=== PATIENT | female | born 1980 | race Caucasian/White ===

== ENCOUNTER → 2016-12-29 | Outpatient (CLI) | payer MEDICARE, MEDICAID ==
[~2016-12-29] MED LIST: ACET-1600 PO; ALBU1.25 NEB; AMLO10TA2 PO; CARV25TA12 PO; CINA60TA PO; CLON-365 PO; ENOX100S5 SQ; FOLI0.8T3 PO; FURO20TA3 PO; FURO80TA3 PO; LISI-170 PO; LOPE2CAP PO; MECL-76 PO; ONDA8TAB9 PO; ONDANSETRON 2MG/ML, 2ML ONE; SEVE800T8 PO; WARF10TA6 PO; WARF5TAB7 PO; sensipar PO
[2016-12-29 11:53] LABS: ASPARTATE AMINO TRANSFERASE 6 U/L (15-37); BLOOD UREA NITROGEN 46 mg/dL (7-18)
== END | disposition home or self-care (01) ==
LOC: STAR 10:10
PROVIDERS: ATTEND Obstetrics & Gynecology Female Pelvic Medicine and Reconstructive Surgery
DX: Z01.818 Encounter for other preprocedural examination (principal); R79.1 Abnormal coagulation profile
CPT/HCPCS: 36415; 80053; 85025; 85610; 85730; 93005

== ENCOUNTER 2017-01-03 11:08 | Observation (INO) | payer MEDICARE, MEDICAID ==
[~2017-01-03] VITALS: Ht 165.1 cm; Wt 87.3 kg
[~2017-01-03 11:08] MED LIST changes: -ACET-1600 PO; -ALBU1.25 NEB; +CEFAZOLIN 1,000 MG ONE; -CINA60TA PO; +DEXAMETHASONE 4 MG/ML, 1ML ONE; -ENOX100S5 SQ; +GLYCOPYRROLATE 0.2MG/1ML ONE; -LOPE2CAP PO; -MECL-76 PO; +METOPROLOL 1 MG/ML, 5ML ONE; +NEOSTIGMINE 1 MG/ML, 10ML ONE; -ONDA8TAB9 PO; +PROPOFOL 10 MG/ML, 20ML ONE; +ROCURONIUM 10 MG/ML ONE; -WARF10TA6 PO; -WARF5TAB7 PO
[2017-01-03] MEDS ORDERED: LACTATED RINGERS 1,000 ML IV SCH (11:30)
[2017-01-03] MEDS ORDERED: ONDA8TAB9 PO (11:54)
[2017-01-03] MEDS ORDERED: ALBU1.25 NEB (11:54)
[2017-01-03 11:57] VITALS: BP 158/91
[2017-01-03] MEDS ORDERED: NEOMY/POLYMYXIN B GU IRR. 1 ML IRRIG ONE ×2 (12:21→13:42)
[2017-01-03] MEDS ORDERED: MECL-76 PO (12:39)
[2017-01-03] MEDS ORDERED: ENOX100S5 SQ (12:39)
[2017-01-03] MEDS ORDERED: WARF10TA6 PO (12:39)
[2017-01-03] MEDS ORDERED: ACET-1600 PO (12:39)
[2017-01-03] MEDS ORDERED: FOLI0.8T3 PO (12:39)
[2017-01-03] MEDS ORDERED: LOPE2CAP PO (12:39)
[2017-01-03] MEDS ORDERED: WARF5TAB7 PO (12:39)
[2017-01-03] MEDS ORDERED: CINA60TA PO (12:39)
[2017-01-03] MEDS ORDERED: SODIUM CHLORIDE 0.9% 1,000 ML IV SCH (12:43)
[2017-01-03 12:45] LABS: ASPARTATE AMINO TRANSFERASE 17 U/L (15-37); BLOOD UREA NITROGEN 60 mg/dL (7-18)
[2017-01-03 12:50] LABS: HCG UR OBC PASS
[2017-01-03] MEDS ORDERED: BUPIVACAINE/PF-EPI 0.25% 1:200K INFIL ONE ×2 (13:40)
[2017-01-03] MEDS ORDERED: FENTANYL PF 250 MCG/5ML ONE ×3 (13:52→16:19)
[2017-01-03] MEDS ORDERED: MIDAZOLAM 1 MG/ML, 2ML ONE ×2 (13:52→15:54)
[2017-01-03] MEDS ORDERED: OXYcodone 5 MG/5 ML ORAL.SOL UDC PO PRN (14:00)
[2017-01-03] MEDS ORDERED: ALBUTEROL/IPRATROPIUM 2.5MG/0.5MG, 3 ML NPPB PRN (14:00)
[2017-01-03] MEDS ORDERED: ACETAMINOPHEN 325 MG TABLET PO PRN ×2 (14:00→22:00)
[2017-01-03] MEDS ORDERED: hydrALAzine 20 MG/ML, 1ML IV PRN (14:00)
[2017-01-03] MEDS ORDERED: HYDROmorphone 1 MG/ML, 1ML ONE ×2 (14:54→15:28)
[2017-01-03] MEDS ORDERED: METOPROLOL 1 MG/ML, 5ML ONE (14:54)
[2017-01-03] MEDS ORDERED: FENTANYL PF 100 MCG/2ML ONE ×2 (14:54→15:28)
[2017-01-03] MEDS ORDERED: OXYcodone 5 MG/5 ML ORAL.SOL UDC ONE (14:55)
[2017-01-03] MEDS: HYDROmorphone 1 MG/ML, 1ML IV PRN ×4 (14:59→19:35)
[2017-01-03] MEDS: FENTANYL PF 100 MCG/2ML IV PRN ×4 (14:59→17:45)
[2017-01-03] MEDS: METOPROLOL 1 MG/ML, 5ML IV PRN ×2 (15:04→15:24)
[2017-01-03] MEDS ORDERED: ONDANSETRON 2MG/ML, 2ML ONE (15:20)
[2017-01-03] MEDS ORDERED: ACETAMINOPHEN 650 MG/20.3 ML UDC ONE (15:20)
[2017-01-03] MEDS ORDERED: hydrALAzine 20 MG/ML, 1ML ONE (15:29)
[2017-01-03] MEDS ORDERED: morphine SULFATE 10 MG/ML, 1ML ONE (15:52)
[2017-01-03] MEDS ORDERED: morphine SULFATE/PF 0.5 MG/ML, 10ML IV ONE (16:00)
[2017-01-03] MEDS ORDERED: MIDAZOLAM 1 MG/ML, 2ML IVPush ONE (16:00)
[2017-01-03] MEDS ORDERED: morphine SULFATE 10 MG/ML, 1ML IV ONE (16:01)
[2017-01-03] MEDS ORDERED: ONDANSETRON 2MG/ML, 2ML IVPush ONE (16:30)
[2017-01-03] MEDS ORDERED: OXYcodone/APAP 5/325MG TABLET ONE (20:14)
[2017-01-03] MEDS: DOCUSATE 100 MG CAPSULE PO SCH (21:00)
[2017-01-03] MEDS ORDERED: FLURAZEPAM 15 MG CAPSULE PO PRN (21:00)
[2017-01-03] MEDS ORDERED: ZOLPIDEM 5MG TABLET PO PRN (21:00)
[2017-01-03] MEDS ORDERED: ONDANSETRON 2MG/ML, 2ML IV PRN (22:00)
[2017-01-03] MEDS ORDERED: ACETAMINOPHEN 650 MG SUPP PR PRN (22:00)
[2017-01-03] MEDS ORDERED: HYDROmorphone 2 MG/ML, 1ML IV PRN (22:00)
[2017-01-04 00:27] VITALS: BP 139/71
[2017-01-04] MEDS: OXYcodone/APAP 5/325MG TABLET PO PRN ×4 (02:04→15:19)
[2017-01-04] MEDS ORDERED: ONDANSETRON ODT 4 MG ONE (02:18)
[2017-01-04] MEDS ORDERED: ONDANSETRON 4 MG TABLET PO PRN (02:30)
[2017-01-04] MEDS ORDERED: HYDROcodone/APAP 5/325 TABLET PO PRN (03:00)
[2017-01-04 03:52] VITALS: BP 138/66
[2017-01-04] MEDS ORDERED: CARVEDILOL 25 MG TABLET PO SCH (06:00)
[2017-01-04 07:03] VITALS: BP 124/62
[2017-01-04] MEDS: SEVELAMER 800MG TABLET PO SCH ×2 (07:59→10:34)
[2017-01-04] MEDS: IBUPROFEN 600 MG TABLET PO SCH ×2 (07:59→10:34)
[2017-01-04] MEDS: DOCUSATE 100 MG CAPSULE PO SCH (08:05)
[2017-01-04] MEDS ORDERED: AMLODIPINE 5 MG TABLET PO SCH (09:00)
[2017-01-04] MEDS ORDERED: SIMETHICONE 80 MG CHEW TAB PO SCH (09:00)
[2017-01-04] MEDS ORDERED: FUROSEMIDE 40 MG TABLET PO SCH (09:00)
[2017-01-04] MEDS ORDERED: LISINOPRIL 10 MG TABLET PO SCH (09:00)
[2017-01-04 13:05] VITALS: BP 108/49
[2017-01-04] MEDS ORDERED: FUROSEMIDE 80 MG TABLET PO SCH (21:00)
== END 2017-01-04 15:52 | disposition home or self-care (01) ==
LOC: OUT 11:08 → 4NOR 20:08 → OUT 20:25 → INTOOBSV 20:27 → 4NOR 20:27
PROVIDERS: ADMIT Obstetrics & Gynecology Female Pelvic Medicine and Reconstructive Surgery; ATTEND Obstetrics & Gynecology Female Pelvic Medicine and Reconstructive Surgery
DX: N99.820 Postprocedural hemorrhage of a genitourinary system organ or structure following a genitourinary system procedure (principal); N92.1 Excessive and frequent menstruation with irregular cycle; N94.6 Dysmenorrhea, unspecified; K21.9 Gastro-esophageal reflux disease without esophagitis; J45.909 Unspecified asthma, uncomplicated; I25.10 Atherosclerotic heart disease of native coronary artery without angina pectoris; I10 Essential (primary) hypertension; N39.3 Stress incontinence (female) (male); F17.210 Nicotine dependence, cigarettes, uncomplicated
CPT/HCPCS: 36415; 57200; 80053; 81025; 85025; 85610; 88307; 96374; C1771; G0378; J0360; J0690; J1100; J1170; J2250; J2274; J2405; J2704; J2710; J3010; Q0162; J3490

== ENCOUNTER 2017-01-10 09:28 | Inpatient (IN) | payer MEDICARE, MEDICAID ==
[~2017-01-10] VITALS: Ht 165.1 cm; Wt 85.5 kg
[2017-01-10] VITALS (10 sets, daily range): BP systolic 109–152; BP diastolic 59–85
[~2017-01-10 09:28] MED LIST changes: +ACET-1600 PO; +ALBU1.25 NEB; -CEFAZOLIN 1,000 MG ONE; +CINA60TA PO; -DEXAMETHASONE 4 MG/ML, 1ML ONE; +ENOX100S5 SQ; -GLYCOPYRROLATE 0.2MG/1ML ONE; +LOPE2CAP PO; +MECL-76 PO; -METOPROLOL 1 MG/ML, 5ML ONE; -NEOSTIGMINE 1 MG/ML, 10ML ONE; +ONDA8TAB9 PO; -ONDANSETRON 2MG/ML, 2ML ONE; -PROPOFOL 10 MG/ML, 20ML ONE; -ROCURONIUM 10 MG/ML ONE; +WARF10TA6 PO; +WARF5TAB7 PO
[2017-01-10] MEDS ORDERED: ONDANSETRON 2MG/ML, 2ML IVPush ONE (11:00)
[2017-01-10] MEDS ORDERED: SODIUM CHLORIDE 0.9% 1,000ML IVBOLUS ONE (11:00)
[2017-01-10] MEDS ORDERED: SODIUM CHLORIDE FLUSH 10ML SYR IVF ONE (11:00)
[2017-01-10 11:39] LABS: BLOOD UREA NITROGEN 84 mg/dL (7-18)
[2017-01-10 11:46] LABS: ANISOCYTOSIS 1+; HYPOCHROMIA 1+; POLYCHROMASIA 1+
[2017-01-10] MEDS ORDERED: OMNIPAQUE 350 MG/ML, 100ML BOTTLE ONE (12:40)
[2017-01-10] MEDS ORDERED: MORPHINE SULFATE 4 MG/ML, 1ML ONE (13:18)
[2017-01-10] MEDS ORDERED: ONDANSETRON 2MG/ML, 2ML ONE (13:18)
[2017-01-10] MEDS ORDERED: HYDROmorphone 1 MG/ML, 1ML ONE ×2 (13:19→14:25)
[2017-01-10] MEDS: HYDROmorphone 1 MG/ML, 1ML IVPush PRN ×2 (13:23→14:26)
[2017-01-10] MEDS ORDERED: METRONIDAZOLE PMX 500MG/100ML 100 ML IV ONE (13:30)
[2017-01-10] MEDS ORDERED: CEFTRIAXONE PMX 1GM/50ML 50 ML IV ONE (13:30)
[2017-01-10] MEDS ORDERED: ACETAMINOPHEN 500 MG TABLET PO PRN (14:00)
[2017-01-10] MEDS ORDERED: ALBUTEROL SULFATE 2.5 MG/3 ML NEB PRN (14:00)
[2017-01-10] MEDS ORDERED: CEFTRIAXONE PMX 1GM/50ML 50 ML ONE (14:02)
[2017-01-10] MEDS ORDERED: METRONIDAZOLE PMX 500MG/100ML 100 ML ONE (14:03)
[2017-01-10] MEDS ORDERED: LORazepam 0.5MG TABLET PO PRN (14:30)
[2017-01-10] MEDS ORDERED: ONDANSETRON 2MG/ML, 2ML IVPush PRN (14:30)
[2017-01-10] MEDS ORDERED: CEFTRIAXONE 1,000 MG in SODIUM CHLORIDE 0.9% 50 ML IV SCH (14:30)
[2017-01-10] MEDS ORDERED: morphine SULFATE 10 MG/ML, 1ML IVPush PRN (14:30)
[2017-01-10] MEDS: CEFTRIAXONE PMX 1GM/50ML 50 ML IV SCH (15:02)
[2017-01-10] MEDS: SEVELAMER 800MG TABLET PO SCH (17:26)
[2017-01-10] MEDS: METRONIDAZOLE PMX 500MG/100ML 100 ML IV SCH (21:22)
[2017-01-10] MEDS: FAMOTIDINE 20 MG TABLET PO SCH (23:13)
[2017-01-10] MEDS: FUROSEMIDE 80 MG TABLET PO SCH (23:13)
[2017-01-10] MEDS: CARVEDILOL 25 MG TABLET PO SCH (23:14)
[2017-01-10] MEDS: LISINOPRIL 20 MG TABLET PO SCH (23:14)
[2017-01-10] MEDS: CINACALCET 30 MG TABLET PO SCH (23:17)
[2017-01-11] VITALS (11 sets, daily range): BP systolic 103–150; BP diastolic 56–81
[2017-01-11] MEDS: CEFTRIAXONE PMX 1GM/50ML 50 ML IV SCH ×2 (02:35→15:14)
[2017-01-11 05:15] LABS: BLOOD UREA NITROGEN 36 mg/dL (7-18)
[2017-01-11] MEDS: METRONIDAZOLE PMX 500MG/100ML 100 ML IV SCH ×3 (05:53→20:58)
[2017-01-11 08:37] LABS: HEP B SURF. AB 29.8 mIU/mL (0.0-10.0)
[2017-01-11] MEDS: FOLIC ACID PO SCH ×2 (09:00)
[2017-01-11] MEDS: [UNRECOGNIZED DRUG - OTHER] PO SCH ×2 (09:00)
[2017-01-11] MEDS: VITAMIN B COMP W C PO SCH ×2 (09:00)
[2017-01-11] MEDS: FUROSEMIDE 40 MG TABLET PO SCH (09:12)
[2017-01-11] MEDS: LISINOPRIL 20 MG TABLET PO SCH ×2 (09:12→20:15)
[2017-01-11] MEDS: CARVEDILOL 25 MG TABLET PO SCH ×2 (09:12→20:15)
[2017-01-11] MEDS: AMLODIPINE 5 MG TABLET PO SCH (09:12)
[2017-01-11] MEDS: SEVELAMER 800MG TABLET PO SCH ×3 (09:12→17:33)
[2017-01-11] MEDS: CINACALCET 30 MG TABLET PO SCH ×2 (09:12→20:15)
[2017-01-11] MEDS ORDERED: DOCUSATE 100 MG CAPSULE PO PRN (15:00)
[2017-01-11] MEDS: FAMOTIDINE 20 MG TABLET PO SCH (20:15)
[2017-01-11] MEDS: FUROSEMIDE 80 MG TABLET PO SCH (20:16)
[2017-01-12 00:42] VITALS: BP 124/69
[2017-01-12 01:58] VITALS: BP 147/75
[2017-01-12] MEDS: CEFTRIAXONE PMX 1GM/50ML 50 ML IV SCH ×2 (02:39→14:59)
[2017-01-12 05:23] LABS: BLOOD UREA NITROGEN 26 mg/dL (7-18)
[2017-01-12] MEDS: METRONIDAZOLE PMX 500MG/100ML 100 ML IV SCH ×2 (05:49→13:14)
[2017-01-12 08:00] VITALS: BP 131/77
[2017-01-12] MEDS: [UNRECOGNIZED DRUG - OTHER] PO SCH ×2 (09:00)
[2017-01-12] MEDS ORDERED: LACTULOSE 20 GM/30 ML UDC PO SCH (09:00)
[2017-01-12] MEDS: FOLIC ACID PO SCH ×2 (09:00)
[2017-01-12] MEDS: VITAMIN B COMP W C PO SCH ×2 (09:00)
[2017-01-12] MEDS: LISINOPRIL 20 MG TABLET PO SCH (09:10)
[2017-01-12] MEDS: AMLODIPINE 5 MG TABLET PO SCH (09:10)
[2017-01-12] MEDS: CINACALCET 30 MG TABLET PO SCH (09:10)
[2017-01-12] MEDS: FUROSEMIDE 40 MG TABLET PO SCH (09:10)
[2017-01-12] MEDS: SEVELAMER 800MG TABLET PO SCH ×2 (09:10→13:15)
[2017-01-12] MEDS: CARVEDILOL 25 MG TABLET PO SCH (09:11)
[2017-01-12] MEDS ORDERED: LACTULOSE 10 GM/15 ML UDC PO ONE (11:00)
[2017-01-12 14:00] VITALS: BP 118/76
[2017-01-12] MEDS ORDERED: BISACODYL 10 MG SUPP PR PRN (14:00)
[2017-01-12] MEDS ORDERED: CEFU500T50 PO (16:52)
== END 2017-01-12 17:55 | disposition home or self-care (01) | DRG 919 ==
LOC: ED 11:36 → EDIP 13:41 → 4WST 14:58
PROVIDERS: ADMIT Internal Medicine; ATTEND Internal Medicine
PROC: 0T9B70Z Drainage of Bladder with Drainage Device, Via Natural or Artificial Opening (ICD-10-PCS; principal; 2017-01-10)
PROC: 30233N1 Transfusion of Nonautologous Red Blood Cells into Peripheral Vein, Percutaneous Approach (ICD-10-PCS; 2017-01-10)
PROC: 30233L1 Transfusion of Nonautologous Fresh Plasma into Peripheral Vein, Percutaneous Approach (ICD-10-PCS; 2017-01-10)
PROC: 30233K1 Transfusion of Nonautologous Frozen Plasma into Peripheral Vein, Percutaneous Approach (ICD-10-PCS; 2017-01-10)
PROC: 30233L1 Transfusion of Nonautologous Fresh Plasma into Peripheral Vein, Percutaneous Approach (ICD-10-PCS; 2017-01-11)
DX: N99.820 Postprocedural hemorrhage of a genitourinary system organ or structure following a genitourinary system procedure (principal); E43 Unspecified severe protein-calorie malnutrition; N18.6 End stage renal disease; D62 Acute posthemorrhagic anemia; N39.0 Urinary tract infection, site not specified; I12.0 Hypertensive chronic kidney disease with stage 5 chronic kidney disease or end stage renal disease; Z68.31 Body mass index [BMI] 31.0-31.9, adult; F17.210 Nicotine dependence, cigarettes, uncomplicated; K59.00 Constipation, unspecified; Z83.3 Family history of diabetes mellitus; Z86.711 Personal history of pulmonary embolism; Z86.718 Personal history of other venous thrombosis and embolism; Z90.710 Acquired absence of both cervix and uterus; Z99.2 Dependence on renal dialysis; Z88.8 Allergy status to other drugs, medicaments and biological substances; T45.515A Adverse effect of anticoagulants, initial encounter
CPT/HCPCS: 36415; 36430; 74177; 76856; 80048; 81001; 82040; 85014; 85018; 85025; 85610; 86704; 86706; 86850; 86900; 86923; 87086; 87340; 96361; 96365; 96375; 96376; J0696; J1170; J2405; Q9967; J2270; J7030; P9016; P9017

== ENCOUNTER 2017-01-25 15:14 | Inpatient (IN) | payer MEDICARE, MEDICAID ==
[2017-01-25] VITALS (11 sets, daily range): BP systolic 100–131; BP diastolic 50–60
[~2017-01-25] VITALS: Ht 165.1 cm; Wt 83.2 kg
[~2017-01-25 15:14] MED LIST changes: +CEFU500T50 PO
[2017-01-25] MEDS ORDERED: SODIUM CHLORIDE FLUSH 10ML SYR IVF ONE (15:30)
[2017-01-25] MEDS ORDERED: SODIUM CHLORIDE 0.9% 1,000ML IVBOLUS ONE (15:30)
[2017-01-25 15:54] LABS: BLOOD UREA NITROGEN 44 mg/dL (7-18)
[2017-01-25 15:57] LABS: ASPARTATE AMINO TRANSFERASE 7 U/L (15-37)
[2017-01-25 16:09] LABS: ANISOCYTOSIS 1+; MICROCYTOSIS 1+
[2017-01-25] MEDS ORDERED: PHYTONADIONE 5 MG TABLET PO ONE (16:30)
[2017-01-25] MEDS ORDERED: ONDANSETRON ODT 4 MG PO PRN (17:30)
[2017-01-25] MEDS ORDERED: ALBUTEROL SULFATE 2.5 MG/3 ML NEB PRN (17:30)
[2017-01-25] MEDS: SEVELAMER 800MG TABLET PO SCH (17:30)
[2017-01-25] MEDS: NICOTINE 14MG/24 HR PATCH.TD24 TD SCH (17:30)
[2017-01-25] MEDS ORDERED: ONDANSETRON 2MG/ML, 2ML IVPush PRN (17:30)
[2017-01-25] MEDS ORDERED: ACETAMINOPHEN 325 MG TABLET PO PRN (17:30)
[2017-01-25] MEDS: FUROSEMIDE 80 MG TABLET PO SCH (21:00)
[2017-01-25] MEDS: LISINOPRIL 20 MG TABLET PO SCH (21:00)
[2017-01-25] MEDS: CARVEDILOL 25 MG TABLET PO SCH (21:00)
[2017-01-25] MEDS: CINACALCET 30 MG TABLET PO SCH (23:47)
[2017-01-26] VITALS (15 sets, daily range): BP systolic 103–124; BP diastolic 62–76
[2017-01-26 07:59] LABS: ASPARTATE AMINO TRANSFERASE 11 U/L (15-37); BLOOD UREA NITROGEN 23 mg/dL (7-18)
[2017-01-26] MEDS: CINACALCET 30 MG TABLET PO SCH ×2 (08:41→20:28)
[2017-01-26] MEDS: SEVELAMER 800MG TABLET PO SCH ×3 (08:41→17:34)
[2017-01-26] MEDS: LISINOPRIL 20 MG TABLET PO SCH ×2 (08:42→20:28)
[2017-01-26] MEDS: FUROSEMIDE 40 MG TABLET PO SCH (08:42)
[2017-01-26] MEDS: CARVEDILOL 25 MG TABLET PO SCH ×2 (08:42→20:29)
[2017-01-26] MEDS ORDERED: ALBU8.5H3 PO (08:59)
[2017-01-26] MEDS ORDERED: AMLODIPINE 5 MG TABLET PO SCH (09:00)
[2017-01-26] MEDS ORDERED: PROAIR PO PRN (09:30)
[2017-01-26] MEDS: NICOTINE 14MG/24 HR PATCH.TD24 TD SCH (17:30)
[2017-01-26] MEDS ORDERED: WARFARIN 2 MG TABLET PO-COUM ONE (18:00)
[2017-01-26] MEDS: CALCIUM CARBONATE 500 MG TAB.CHEW PO PRN (20:28)
[2017-01-26] MEDS: FUROSEMIDE 80 MG TABLET PO SCH (20:28)
[2017-01-27] VITALS (7 sets, daily range): BP systolic 103–145; BP diastolic 51–83
[2017-01-27 06:45] LABS: ASPARTATE AMINO TRANSFERASE 11 U/L (15-37); BLOOD UREA NITROGEN 34 mg/dL (7-18); TOTAL IRON BINDING CAPACITY 187 mcg/dL (250-450)
[2017-01-27] MEDS: SEVELAMER 800MG TABLET PO SCH ×3 (08:23→17:00)
[2017-01-27] MEDS: CINACALCET 30 MG TABLET PO SCH ×2 (08:23→19:57)
[2017-01-27] MEDS: LISINOPRIL 20 MG TABLET PO SCH ×2 (09:00→19:57)
[2017-01-27] MEDS: FUROSEMIDE 40 MG TABLET PO SCH (09:00)
[2017-01-27] MEDS: CARVEDILOL 25 MG TABLET PO SCH ×2 (09:00→19:58)
[2017-01-27] MEDS: POLYETHYLENE GLYCOL 17 GM PACKET PO SCH (13:30)
[2017-01-27] MEDS: NICOTINE 14MG/24 HR PATCH.TD24 TD SCH (17:30)
[2017-01-27] MEDS ORDERED: WARFARIN 2.5 MG TABLET PO-COUM SCH (18:00)
[2017-01-27] MEDS: CALCIUM CARBONATE 500 MG TAB.CHEW PO PRN (19:57)
[2017-01-27] MEDS: FUROSEMIDE 80 MG TABLET PO SCH (19:57)
[2017-01-28 01:20] VITALS: BP 105/67
[2017-01-28 05:05] LABS: BLOOD UREA NITROGEN 24 mg/dL (7-18)
[2017-01-28 08:00] VITALS: BP 123/77
[2017-01-28] MEDS: CINACALCET 30 MG TABLET PO SCH ×2 (08:40→20:39)
[2017-01-28] MEDS: LISINOPRIL 20 MG TABLET PO SCH ×2 (08:40→20:40)
[2017-01-28] MEDS: CARVEDILOL 25 MG TABLET PO SCH ×2 (08:41→20:39)
[2017-01-28] MEDS: SEVELAMER 800MG TABLET PO SCH ×3 (08:41→17:16)
[2017-01-28] MEDS: FUROSEMIDE 40 MG TABLET PO SCH (08:41)
[2017-01-28] MEDS: POLYETHYLENE GLYCOL 17 GM PACKET PO SCH (08:41)
[2017-01-28 10:32] LABS: PTH INTACT INTERPRETATION ** Comment **
[2017-01-28 11:00] LABS: PARATHYROID HORMONE INTACT 183.4 pg/mL (14-72)
[2017-01-28] MEDS ORDERED: POLYETHYLENE GLYCOL 17 GM PACKET PO PRN (11:30)
[2017-01-28 15:04] VITALS: BP 147/85
[2017-01-28] MEDS: NICOTINE 14MG/24 HR PATCH.TD24 TD SCH (17:17)
[2017-01-28] MEDS ORDERED: WARFARIN 3 MG TABLET PO-COUM ONE (18:00)
[2017-01-28] MEDS: CALCIUM CARBONATE 500 MG TAB.CHEW PO PRN (18:13)
[2017-01-28 20:00] VITALS: BP 138/80
[2017-01-28] MEDS: FUROSEMIDE 80 MG TABLET PO SCH (20:40)
[2017-01-28] MEDS ORDERED: AMLODIPINE 5 MG TABLET PO SCH (21:00)
[2017-01-29 02:00] VITALS: BP 128/80
[2017-01-29 05:20] LABS: BLOOD UREA NITROGEN 43 mg/dL (7-18)
[2017-01-29 06:43] VITALS: BP 113/56
[2017-01-29] MEDS: LISINOPRIL 20 MG TABLET PO SCH (08:14)
[2017-01-29] MEDS: FUROSEMIDE 40 MG TABLET PO SCH (08:14)
[2017-01-29] MEDS: CINACALCET 30 MG TABLET PO SCH (08:14)
[2017-01-29] MEDS: CARVEDILOL 25 MG TABLET PO SCH (08:15)
[2017-01-29] MEDS: SEVELAMER 800MG TABLET PO SCH ×2 (08:15→12:00)
[2017-01-29] MEDS ORDERED: WARF3TAB PO (13:12)
[2017-01-29] MEDS ORDERED: AMLO5TAB2 PO (13:12)
[2017-01-29] MEDS ORDERED: CINA30TA PO (13:12)
[2017-01-29] MEDS ORDERED: WARFARIN 3 MG TABLET PO-COUM ONE (15:00)
== END 2017-01-29 14:45 | disposition home or self-care (01) | DRG 919 ==
LOC: ED 15:25 → EDIP 16:05 → 4WST 17:06
PROVIDERS: ADMIT Internal Medicine; ATTEND Internal Medicine
PROC: 0UCGXZZ Extirpation of Matter from Vagina, External Approach (ICD-10-PCS; principal; 2017-01-25)
PROC: 30233L1 Transfusion of Nonautologous Fresh Plasma into Peripheral Vein, Percutaneous Approach (ICD-10-PCS; 2017-01-25)
PROC: 30233N1 Transfusion of Nonautologous Red Blood Cells into Peripheral Vein, Percutaneous Approach (ICD-10-PCS; 2017-01-25)
PROC: 30233K1 Transfusion of Nonautologous Frozen Plasma into Peripheral Vein, Percutaneous Approach (ICD-10-PCS; 2017-01-25)
PROC: 5A1D60Z (ICD-10-PCS; 2017-01-25)
PROC: 30233N1 Transfusion of Nonautologous Red Blood Cells into Peripheral Vein, Percutaneous Approach (ICD-10-PCS; 2017-01-26)
PROC: 30233L1 Transfusion of Nonautologous Fresh Plasma into Peripheral Vein, Percutaneous Approach (ICD-10-PCS; 2017-01-26)
PROC: 30233K1 Transfusion of Nonautologous Frozen Plasma into Peripheral Vein, Percutaneous Approach (ICD-10-PCS; 2017-01-26)
PROC: 30233N1 Transfusion of Nonautologous Red Blood Cells into Peripheral Vein, Percutaneous Approach (ICD-10-PCS; 2017-01-27)
DX: N99.820 Postprocedural hemorrhage of a genitourinary system organ or structure following a genitourinary system procedure (principal); N18.6 End stage renal disease; E43 Unspecified severe protein-calorie malnutrition; D62 Acute posthemorrhagic anemia; D68.59 Other primary thrombophilia; E72.12 Methylenetetrahydrofolate reductase deficiency; I13.11 Hypertensive heart and chronic kidney disease without heart failure, with stage 5 chronic kidney disease, or end stage renal disease; N92.1 Excessive and frequent menstruation with irregular cycle; N94.6 Dysmenorrhea, unspecified; F17.210 Nicotine dependence, cigarettes, uncomplicated; D63.1 Anemia in chronic kidney disease; E87.5 Hyperkalemia; D72.829 Elevated white blood cell count, unspecified; G43.909 Migraine, unspecified, not intractable, without status migrainosus; J45.909 Unspecified asthma, uncomplicated; K21.9 Gastro-esophageal reflux disease without esophagitis; Z79.01 Long term (current) use of anticoagulants; Z82.49 Family history of ischemic heart disease and other diseases of the circulatory system; Z86.711 Personal history of pulmonary embolism; Z86.718 Personal history of other venous thrombosis and embolism; Z90.710 Acquired absence of both cervix and uterus; Z79.899 Other long term (current) drug therapy; Z99.2 Dependence on renal dialysis; Z88.8 Allergy status to other drugs, medicaments and biological substances; Z82.5 Family history of asthma and other chronic lower respiratory diseases; Z68.30 Body mass index [BMI] 30.0-30.9, adult; N93.8 Other specified abnormal uterine and vaginal bleeding; T45.515A Adverse effect of anticoagulants, initial encounter
CPT/HCPCS: 36415; 36430; 76856; 80053; 80069; 82306; 82310; 82728; 83540; 83550; 83735; 83970; 84100; 85014; 85018; 85025; 85610; 85730; 86850; 86900; 86923; 93005; P9016; P9017

== ENCOUNTER 2017-03-04 13:25 | Emergency (ER) | payer MEDICARE, MEDICAID ==
[2017-03-04] VITALS (7 sets, daily range): BP systolic 157–175; BP diastolic 68–90
[~2017-03-04] VITALS: Ht 165.1 cm; Wt 95.7 kg
[~2017-03-04 13:25] MED LIST changes: +ALBU8.5H3 PO; +AMLO5TAB2 PO; +CINA30TA PO; +WARF3TAB PO
[2017-03-04] MEDS ORDERED: SODIUM CHLORIDE FLUSH 10ML SYR IVF ONE (14:00)
[2017-03-04 14:30] LABS: BLOOD UREA NITROGEN 16 mg/dL (7-18)
[2017-03-04 14:55] LABS: HEMOGLOBIN 7.1 g/dL (11.7-16.4); WHITE BLOOD COUNT 7.2 x10^3/uL (3.4-10)
[2017-03-04 14:59] LABS: HEMATOCRIT 21.1 % (34.6-47.8)
[2017-03-06] MEDS ORDERED: WARF5TAB PO (20:22)
== END 2017-03-04 20:28 | disposition home or self-care (01) ==
LOC: ED 15:04
DX: D59.9 Acquired hemolytic anemia, unspecified (principal); I10 Essential (primary) hypertension; J45.909 Unspecified asthma, uncomplicated; Z90.710 Acquired absence of both cervix and uterus; F17.200 Nicotine dependence, unspecified, uncomplicated; Z99.2 Dependence on renal dialysis
CPT/HCPCS: 36415; 36430; 80048; 82040; 85025; 85610; 85730; 86850; 86900; 86923; 93005; 99285; P9016

== ENCOUNTER 2017-04-29 06:44 | Inpatient (IN) | payer MEDICARE, MEDICAID ==
[~2017-04-29] VITALS: Ht 167.6 cm; Wt 80.3 kg
[~2017-04-29 06:44] MED LIST changes: -ALBU8.5H3 PO; +ALBU8.5H8 PO; -CINA30TA PO; +CINA30TA2 PO; +ETOMIDATE 20 MG/10 ML ONE; +PROPOFOL 10 MG/ML, 100ML IV ONE; +PROPOFOL 10 MG/ML, 20ML ONE; +SUCCINYLCHOLINE 20 MG/ML, 10ML ONE; +WARF5TAB PO
[2017-04-29] MEDS ORDERED: NITROGLYCERIN/D5W PMX 250 ML IV SCH (06:57)
[2017-04-29] MEDS ORDERED: SODIUM CHLORIDE FLUSH 10ML SYR IVF ONE (07:00)
[2017-04-29] MEDS ORDERED: NITROGLYCERIN/D5W PMX 250 ML IV PRN (07:00)
[2017-04-29] MEDS ORDERED: PLEASE ENTER HEIGHT AND WEIGHT MC SCH (07:00)
[2017-04-29 07:26] LABS: HEMATOCRIT 27.6 % (34.6-47.8); HEMOGLOBIN 9.1 g/dL (11.7-16.4); WHITE BLOOD COUNT 15.3 x10^3/uL (3.4-10)
[2017-04-29] MEDS ORDERED: NITROGLYCERIN 0.4 MG/SPRAY SL PRN (07:30)
[2017-04-29] MEDS ORDERED: methylPREDNISolone SOD SUCC 125 MG/2 ML ONE (07:32)
[2017-04-29] MEDS ORDERED: ALBUTEROL/IPRATROPIUM 2.5MG/0.5MG, 3 ML ONE (07:33)
[2017-04-29 07:39] LABS: BLOOD UREA NITROGEN 93 mg/dL (7-18)
[2017-04-29 07:47] LABS: IS PT STATUS REG ER OR PRE ER? YES
[2017-04-29 07:59] LABS: ABG COLLECTION SITE LEFT RADIAL; COLLATERAL CIRCULATION TESTING NORMAL
[2017-04-29] MEDS ORDERED: INSULIN REGULAR 100 UNITS/ML, 3ML VIAL IVPush ONE (08:00)
[2017-04-29] MEDS ORDERED: ALBUTEROL/IPRATROPIUM 2.5MG/0.5MG, 3 ML NEB ONE (08:00)
[2017-04-29] MEDS ORDERED: CALCIUM CHLORIDE 10%, 10ML SYR IVPush ONE (08:00)
[2017-04-29] MEDS ORDERED: DEXTROSE 50%, 50ML SYRINGE IVPush ONE (08:00)
[2017-04-29] MEDS ORDERED: SODIUM POLY SULFONATE UDC 15 GM/60 ML NG ONE (08:00)
[2017-04-29] MEDS ORDERED: SODIUM BICARB 8.4%, 50ML SYRINGE IVPush ONE (08:00)
[2017-04-29] MEDS ORDERED: ALBUTEROL 0.5%, 20ML NPPB ONE (08:00)
[2017-04-29] MEDS ORDERED: DEXTROSE 50%, 50ML SYRINGE ONE (08:11)
[2017-04-29] MEDS ORDERED: SODIUM BICARB 8.4%, 50ML SYRINGE ONE (08:11)
[2017-04-29] MEDS ORDERED: CALCIUM CHLORIDE 10%, 10ML SYR ONE (08:11)
[2017-04-29] MEDS ORDERED: SODIUM POLYSTYRENE SULFONATE ORAL SUSP ONE (08:11)
[2017-04-29] MEDS ORDERED: INSULIN REGULAR 100 UNITS/ML, 3ML VIAL ONE (08:12)
[2017-04-29 08:35] LABS: ABG COLLECTION SITE RIGHT BRACHIAL; FIO2 60 %
[2017-04-29] MEDS ORDERED: PROPOFOL 100 ML IV PRN ×2 (08:35→10:47)
[2017-04-29] MEDS ORDERED: ALBUTEROL/IPRATROPIUM 2.5MG/0.5MG, 3 ML INLINE SCH (11:00)
[2017-04-29] MEDS ORDERED: LIDOCAINE-MPF 1%, 2ML ENDO PRN (11:00)
[2017-04-29] MEDS ORDERED: SENNOSIDES 8.8 MG/5 ML ORAL SOL NG PRN (11:00)
[2017-04-29] MEDS ORDERED: LACTULOSE 20 GM/30 ML UDC NG PRN (11:00)
[2017-04-29] MEDS ORDERED: SENNA/DOCUSATE TABLET NG PRN (11:00)
[2017-04-29] MEDS ORDERED: PANTOPRAZOLE 40 MG IV IV SCH (11:00)
[2017-04-29] MEDS ORDERED: PHARMACY MAY ADJ FOR RENAL FX MC SCH (11:00)
[2017-04-29] MEDS ORDERED: BISACODYL 10 MG SUPP PR PRN (11:00)
[2017-04-29] MEDS ORDERED: AMIODARONE 50 MG/ML, 3ML ONE (11:17)
[2017-04-29] MEDS: SEVELAMER 800MG TABLET PO SCH ×2 (12:00→16:34)
[2017-04-29] MEDS: ALBUTEROL/IPRATROPIUM 2.5MG/0.5MG, 3 ML NPPB SCH ×2 (17:40→21:40)
[2017-04-29] MEDS ORDERED: LORazepam 2 MG/ML, 1ML ONE (19:16)
[2017-04-29] MEDS ORDERED: DILTIAZEM 125 MG in SODIUM CHLORIDE 0.9% 100 ML IV PRN (19:30)
[2017-04-29] MEDS ORDERED: DILTIAZEM 5 MG/ML, 5ML IVPush ONE ×2 (19:30)
[2017-04-29 19:55] LABS: IS PT STATUS REG ER OR PRE ER? NO
[2017-04-29 20:07] LABS: BLOOD UREA NITROGEN 32 mg/dL (7-18)
[2017-04-29] MEDS: CARVEDILOL 25 MG TABLET PO SCH (21:00)
[2017-04-29] MEDS: AMLODIPINE 5 MG TABLET PO SCH (21:00)
[2017-04-29] MEDS: CINACALCET 30 MG TABLET PO SCH (21:01)
[2017-04-29] MEDS: LISINOPRIL 20 MG TABLET PO SCH (21:01)
[2017-04-30] MEDS: FENTANYL PF 100 MCG/2ML IVPush PRN ×2 (02:07→05:18)
[2017-04-30 04:41] LABS: ABG COLLECTION SITE LEFT BRACHIAL
[2017-04-30 04:44] LABS: HEMATOCRIT 23.3 % (34.6-47.8); WHITE BLOOD COUNT 9.4 x10^3/uL (3.4-10)
[2017-04-30 04:51] LABS: BLOOD UREA NITROGEN 43 mg/dL (7-18)
[2017-04-30 04:56] LABS: ASPARTATE AMINO TRANSFERASE 43 U/L (15-37); TOTAL IRON BINDING CAPACITY 195 mcg/dL (250-450)
[2017-04-30] MEDS: ALBUTEROL/IPRATROPIUM 2.5MG/0.5MG, 3 ML NPPB SCH ×2 (06:42→10:00)
[2017-04-30] MEDS: SEVELAMER 800MG TABLET PO SCH ×4 (07:27→18:03)
[2017-04-30] MEDS: LISINOPRIL 20 MG TABLET PO SCH ×2 (09:00→21:55)
[2017-04-30] MEDS: CARVEDILOL 25 MG TABLET PO SCH ×2 (09:00→21:55)
[2017-04-30] MEDS: CINACALCET 30 MG TABLET PO SCH ×2 (09:00→21:55)
[2017-04-30] MEDS: OXYcodone IR 5MG TABLET PO PRN ×3 (09:57→21:56)
[2017-04-30] MEDS ORDERED: ONDANSETRON 2MG/ML, 2ML IVPush PRN (11:30)
[2017-04-30 13:33] VITALS: BP 118/69
[2017-04-30 14:43] VITALS: BP 130/60
[2017-04-30] MEDS ORDERED: WARFARIN 1 MG TABLET PO-COUM SCH (18:00)
[2017-04-30] MEDS: AMLODIPINE 5 MG TABLET PO SCH (21:00)
[2017-04-30 21:53] VITALS: BP 113/72
[2017-05-01] VITALS (11 sets, daily range): BP systolic 76–129; BP diastolic 46–78
[2017-05-01 05:47] LABS: HEMATOCRIT 25.6 % (34.6-47.8); HEMOGLOBIN 8.7 g/dL (11.7-16.4); WHITE BLOOD COUNT 8.9 x10^3/uL (3.4-10)
[2017-05-01 05:53] LABS: BLOOD UREA NITROGEN 36 mg/dL (7-18)
[2017-05-01] MEDS: SEVELAMER 800MG TABLET PO SCH ×3 (09:14→17:31)
[2017-05-01] MEDS: LISINOPRIL 20 MG TABLET PO SCH (09:14)
[2017-05-01] MEDS: CARVEDILOL 25 MG TABLET PO SCH (09:15)
[2017-05-01] MEDS: CINACALCET 30 MG TABLET PO SCH ×2 (09:15→22:22)
[2017-05-01] MEDS: OXYcodone IR 5MG TABLET PO PRN ×2 (09:32→10:40)
[2017-05-01] MEDS ORDERED: ALBUTEROL/IPRATROPIUM 2.5MG/0.5MG, 3 ML NPPB PRN (10:00)
[2017-05-01] MEDS: ACETAMINOPHEN 325 MG TABLET PO PRN (12:37)
[2017-05-01 12:41] LABS: IS PT STATUS REG ER OR PRE ER? NO
[2017-05-01] MEDS ORDERED: MOME220A9 INH (17:35)
[2017-05-01] MEDS ORDERED: MONT10TA9 PO (17:36)
[2017-05-01] MEDS ORDERED: CINA60TA PO (17:38)
[2017-05-01] MEDS ORDERED: AMLO10TA2 PO (17:42)
[2017-05-01] MEDS ORDERED: CLON-365 PO (17:42)
[2017-05-01] MEDS ORDERED: FOLI0.8T35 PO (17:42)
[2017-05-01] MEDS ORDERED: LOSA25TA5 PO (17:42)
[2017-05-01] MEDS ORDERED: WARFARIN 3 MG TABLET PO-COUM SCH (18:00)
[2017-05-01] MEDS: MOMETASONE INH SCH (21:00)
[2017-05-01] MEDS: MONTELUKAST 10 MG TABLET PO SCH (22:22)
[2017-05-02] VITALS (8 sets, daily range): BP systolic 87–151; BP diastolic 53–82
[2017-05-02] MEDS: OXYcodone IR 5MG TABLET PO PRN (04:01)
[2017-05-02 05:16] LABS: HEMOGLOBIN 8.5 g/dL (11.7-16.4); WHITE BLOOD COUNT 7.2 x10^3/uL (3.4-10)
[2017-05-02 05:27] LABS: BLOOD UREA NITROGEN 56 mg/dL (7-18)
[2017-05-02 07:04] LABS: IS PT STATUS REG ER OR PRE ER? NO
[2017-05-02] MEDS: AMLODIPINE 5 MG TABLET PO SCH (09:00)
[2017-05-02] MEDS: LOSARTAN 25MG TABLET PO SCH (09:00)
[2017-05-02] MEDS: SEVELAMER 800MG TABLET PO SCH ×3 (12:00→17:31)
[2017-05-02] MEDS: ACETAMINOPHEN 325 MG TABLET PO PRN (12:42)
[2017-05-02] MEDS: CINACALCET 30 MG TABLET PO SCH ×2 (12:43→21:31)
[2017-05-02] MEDS: SODIUM CHLORIDE 0.9% 1,000 ML IV SCH (17:32)
[2017-05-02] MEDS ORDERED: WARFARIN 5 MG TABLET PO-COUM ONE (18:00)
[2017-05-02] MEDS: MOMETASONE INH SCH (21:00)
[2017-05-02] MEDS: MONTELUKAST 10 MG TABLET PO SCH (21:32)
[2017-05-03 01:40] VITALS: BP 105/69
[2017-05-03 05:31] LABS: HEMOGLOBIN 8.8 g/dL (11.7-16.4); WHITE BLOOD COUNT 7.2 x10^3/uL (3.4-10)
[2017-05-03 05:32] LABS: BLOOD UREA NITROGEN 60 mg/dL (7-18)
[2017-05-03 07:20] VITALS: BP 120/77
[2017-05-03] MEDS: CINACALCET 30 MG TABLET PO SCH ×2 (08:44→19:35)
[2017-05-03] MEDS: SEVELAMER 800MG TABLET PO SCH ×3 (08:44→17:00)
[2017-05-03] MEDS: LOSARTAN 25MG TABLET PO SCH (08:45)
[2017-05-03] MEDS: AMLODIPINE 5 MG TABLET PO SCH ×2 (08:46→19:34)
[2017-05-03 14:29] VITALS: BP 140/76
[2017-05-03] MEDS ORDERED: WARFARIN 7.5 MG TABLET PO-COUM ONE (18:00)
[2017-05-03 18:45] VITALS: BP 150/73
[2017-05-03] MEDS: MONTELUKAST 10 MG TABLET PO SCH (19:34)
[2017-05-03] MEDS: SODIUM CHLORIDE 0.9% 1,000 ML IV SCH (19:35)
[2017-05-03] MEDS: MOMETASONE INH SCH (19:36)
[2017-05-04 01:31] VITALS: BP 130/76
[2017-05-04 05:20] LABS: HEMATOCRIT 25.4 % (34.6-47.8); HEMOGLOBIN 8.7 g/dL (11.7-16.4); WHITE BLOOD COUNT 7.3 x10^3/uL (3.4-10)
[2017-05-04 05:32] LABS: BLOOD UREA NITROGEN 86 mg/dL (7-18)
[2017-05-04] MEDS: SEVELAMER 800MG TABLET PO SCH ×3 (08:37→17:18)
[2017-05-04 09:48] VITALS: BP 115/64
[2017-05-04] MEDS: LOSARTAN 25MG TABLET PO SCH (09:50)
[2017-05-04] MEDS: CINACALCET 30 MG TABLET PO SCH ×2 (09:50→20:54)
[2017-05-04 17:16] VITALS: BP 111/71
[2017-05-04] MEDS: OXYcodone IR 5MG TABLET PO PRN ×2 (17:22→23:35)
[2017-05-04] MEDS ORDERED: WARFARIN 5 MG TABLET PO-COUM ONE (18:00)
[2017-05-04 20:49] VITALS: BP 105/69
[2017-05-04] MEDS: MOMETASONE INH SCH (20:54)
[2017-05-04] MEDS: MONTELUKAST 10 MG TABLET PO SCH (20:54)
[2017-05-04] MEDS: AMLODIPINE 5 MG TABLET PO SCH (20:54)
[2017-05-05 03:07] VITALS: BP 107/66
[2017-05-05 06:01] LABS: HEMATOCRIT 27.6 % (34.6-47.8); HEMOGLOBIN 9.4 g/dL (11.7-16.4); WHITE BLOOD COUNT 6.8 x10^3/uL (3.4-10)
[2017-05-05 06:42] LABS: BLOOD UREA NITROGEN 53 mg/dL (7-18)
[2017-05-05] MEDS: SEVELAMER 800MG TABLET PO SCH ×3 (08:31→17:33)
[2017-05-05 09:35] VITALS: BP 121/67
[2017-05-05] MEDS: LOSARTAN 25MG TABLET PO SCH (10:14)
[2017-05-05] MEDS: CINACALCET 30 MG TABLET PO SCH ×2 (10:14→20:16)
[2017-05-05 14:34] VITALS: BP 128/87
[2017-05-05] MEDS ORDERED: WARFARIN 5 MG TABLET PO-COUM SCH (18:00)
[2017-05-05 19:54] VITALS: BP 109/65
[2017-05-05] MEDS: MOMETASONE INH SCH (20:15)
[2017-05-05] MEDS: AMLODIPINE 5 MG TABLET PO SCH (20:16)
[2017-05-05] MEDS: MONTELUKAST 10 MG TABLET PO SCH (20:16)
[2017-05-06 04:31] VITALS: BP 112/67
[2017-05-06 05:28] LABS: HEMATOCRIT 25.6 % (34.6-47.8); HEMOGLOBIN 8.8 g/dL (11.7-16.4); WHITE BLOOD COUNT 5.9 x10^3/uL (3.4-10)
[2017-05-06 05:48] LABS: BLOOD UREA NITROGEN 83 mg/dL (7-18)
[2017-05-06] MEDS: SEVELAMER 800MG TABLET PO SCH ×3 (08:39→17:17)
[2017-05-06] MEDS: CINACALCET 30 MG TABLET PO SCH ×2 (08:39→21:09)
[2017-05-06 08:54] VITALS: BP 115/75
[2017-05-06] MEDS ORDERED: ONDANSETRON 2MG/ML, 2ML IVPush PRN (12:00)
[2017-05-06] MEDS: OXYcodone IR 5MG TABLET PO PRN (12:57)
[2017-05-06 12:59] VITALS: BP 100/66
[2017-05-06] MEDS: LOSARTAN 25MG TABLET PO SCH (13:34)
[2017-05-06] MEDS ORDERED: AMLO5TAB2 PO (16:47)
[2017-05-06 16:50] VITALS: BP 111/70
[2017-05-06] MEDS ORDERED: WARFARIN 7.5 MG TABLET PO-COUM SCH (18:00)
[2017-05-06 19:17] VITALS: BP 115/72
[2017-05-06] MEDS: MOMETASONE INH SCH (21:00)
[2017-05-06] MEDS: MONTELUKAST 10 MG TABLET PO SCH (21:09)
[2017-05-06] MEDS: AMLODIPINE 5 MG TABLET PO SCH (21:09)
[2017-05-07] MEDS ORDERED: ALUMINUM/MAG/SIMETHICONE 30 ML UDC PO PRN (00:30)
[2017-05-07] MEDS ORDERED: CALCIUM CARBONATE 500 MG TAB.CHEW PO ONE (00:30)
[2017-05-07 00:46] VITALS: BP 98/59
[2017-05-07 05:18] LABS: HEMATOCRIT 27.4 % (34.6-47.8); HEMOGLOBIN 9.4 g/dL (11.7-16.4); WHITE BLOOD COUNT 6.5 x10^3/uL (3.4-10)
[2017-05-07 05:32] LABS: BLOOD UREA NITROGEN 67 mg/dL (7-18)
[2017-05-07 06:45] VITALS: BP 99/63
[2017-05-07] MEDS: SEVELAMER 800MG TABLET PO SCH ×2 (08:00→12:26)
[2017-05-07] MEDS: CINACALCET 30 MG TABLET PO SCH (08:00)
[2017-05-07] MEDS: LOSARTAN 25MG TABLET PO SCH (08:03)
[2017-05-07] MEDS: OXYcodone IR 5MG TABLET PO PRN (12:26)
[2017-05-07] MEDS ORDERED: WARFARIN 3 MG TABLET PO-COUM ONE (18:00)
== END 2017-05-07 13:52 | DRG 208 ==
LOC: ED 08:34 → EDIP 08:35 → ED 08:39 → CCU 09:10 → 5SO 04-30 13:37
PROVIDERS: ADMIT Internal Medicine; ATTEND Family Medicine
PROC: 5A1935Z Respiratory Ventilation, Less than 24 Consecutive Hours (ICD-10-PCS; principal; 2017-04-29)
PROC: 0BH17EZ Insertion of Endotracheal Airway into Trachea, Via Natural or Artificial Opening (ICD-10-PCS; 2017-04-29)
PROC: 5A09357 Assistance with Respiratory Ventilation, Less than 24 Consecutive Hours, Continuous Positive Airway Pressure (ICD-10-PCS; 2017-04-29)
PROC: 5A1D70Z Performance of Urinary Filtration, Intermittent, Less than 6 Hours Per Day (ICD-10-PCS; 2017-05-02)
PROC: 5A1D70Z Performance of Urinary Filtration, Intermittent, Less than 6 Hours Per Day (ICD-10-PCS; 2017-05-04)
PROC: 5A1D70Z Performance of Urinary Filtration, Intermittent, Less than 6 Hours Per Day (ICD-10-PCS; 2017-05-06)
DX: J96.01 Acute respiratory failure with hypoxia (principal); I13.2 Hypertensive heart and chronic kidney disease with heart failure and with stage 5 chronic kidney disease, or end stage renal disease; Z99.11 Dependence on respirator [ventilator] status; D68.59 Other primary thrombophilia; E87.2 Acidosis; E46 Unspecified protein-calorie malnutrition; E72.12 Methylenetetrahydrofolate reductase deficiency; N18.6 End stage renal disease; E87.5 Hyperkalemia; I50.31 Acute diastolic (congestive) heart failure; I48.92 Unspecified atrial flutter; I47.1 Supraventricular tachycardia; Q23.1 Congenital insufficiency of aortic valve; D63.1 Anemia in chronic kidney disease; D72.829 Elevated white blood cell count, unspecified; G43.909 Migraine, unspecified, not intractable, without status migrainosus; I45.81 Long QT syndrome; J45.909 Unspecified asthma, uncomplicated; N25.0 Renal osteodystrophy; F41.9 Anxiety disorder, unspecified; Z79.01 Long term (current) use of anticoagulants; Z82.49 Family history of ischemic heart disease and other diseases of the circulatory system; Z86.711 Personal history of pulmonary embolism; Z86.718 Personal history of other venous thrombosis and embolism; Z87.891 Personal history of nicotine dependence; Z90.710 Acquired absence of both cervix and uterus; Z91.15 Patient's noncompliance with renal dialysis; Z99.2 Dependence on renal dialysis; Z88.8 Allergy status to other drugs, medicaments and biological substances; Z79.899 Other long term (current) drug therapy
CPT/HCPCS: 36415; 36600; 71010; 80048; 80053; 82040; 82306; 82330; 82728; 82803; 83540; 83550; 83735; 83880; 83970; 84100; 84478; 84484; 84550; 85025; 85610; 85730; 87070; 87081; 87205; 93005; 93306; 94002; 94150; 94640; 94660; J2405; J2704; J3010; J7620; C9113; J0282; J0330; J7030

== ENCOUNTER 2017-10-03 09:40 | Inpatient (IN) | payer MEDICARE, MEDICAID ==
[2017-10-03] VITALS (7 sets, daily range): BP systolic 168–184; BP diastolic 74–105
[~2017-10-03] VITALS: Ht 165.1 cm; Wt 88.6 kg
[~2017-10-03 09:40] MED LIST changes: -ETOMIDATE 20 MG/10 ML ONE; +FOLI0.8T35 PO; +LOSA25TA5 PO; +MOME220A9 INH; +MONT10TA9 PO; -PROPOFOL 10 MG/ML, 100ML IV ONE; -PROPOFOL 10 MG/ML, 20ML ONE; -SUCCINYLCHOLINE 20 MG/ML, 10ML ONE; +WARF-36 PO; -WARF5TAB7 PO
[2017-10-03 12:29] LABS: MEAN CORPUSCULAR HEMOGLOBIN 34.4 pg (27.0-34.8); MEAN CORPUSCULAR HGB CONC 34.5 g/dL (32.4-35.8); MEAN CORPUSCULAR VOLUME 99.7 fL (80-100); MEAN PLATELET VOLUME 7.6 fL (7.4-10.4); PLATELET COUNT 226 x10^3/uL (130-400); RED BLOOD COUNT 1.93 x10^6/uL (3.82-5.3); RED CELL DISTRIBUTION WIDTH 13.9 % (9.6-15.2)
[2017-10-03 12:54] LABS: BASOPHILS # (AUTO) 0.06 x10^3/uL (0-0.1); BASOPHILS % (AUTO) 1 % (0-1); EOSINOPHILS # (AUTO) 0.24 x10^3/uL (0-0.4); EOSINOPHILS % (AUTO) 3 % (1-7); LYMPHOCYTES # (AUTO) 1.13 x10^3/uL (1-3.4); LYMPHOCYTES % (AUTO) 16 % (22-44); MD SCAN; MONOCYTES # (AUTO) 0.42 x10^3/uL (0.2-0.8); MONOCYTES % (AUTO) 6 % (2-9); NEUTROPHILS # (AUTO) 5.32 x10^3/uL (1.8-6.8); NEUTROPHILS % (AUTO) 74 % (42-75)
[2017-10-03 13:17] LABS: ALANINE AMINOTRANSFERASE 18 U/L (12-78); ALBUMIN 3.4 g/dL (3.4-5.0); ANION GAP 11 mmol/L (5-15); CALCIUM 8.8 mg/dL (8.5-10.1); CHLORIDE 101 mmol/L (98-107)
[2017-10-03 13:28] LABS: ALKALINE PHOSPHATASE 71 U/L (45-117); BILIRUBIN,TOTAL 0.5 mg/dL (0.2-1.0); TOTAL PROTEIN 6.9 g/dL (6.4-8.2)
[2017-10-03] MEDS ORDERED: ONDANSETRON 2MG/ML, 2ML IVPush PRN (14:30)
[2017-10-03] MEDS ORDERED: ACETAMINOPHEN 325 MG TABLET PO PRN (14:30)
[2017-10-03] MEDS ORDERED: morphine SULFATE 10 MG/ML, 1ML IVPush PRN (14:30)
[2017-10-03] MEDS ORDERED: HYDROcodone/APAP 5/325 TABLET PO PRN (14:30)
[2017-10-03] MEDS ORDERED: hydrALAzine 20 MG/ML, 1ML IVPush PRN (14:30)
[2017-10-03] MEDS ORDERED: MECLIZINE CHEWABLE 25 MG TAB PO SCH (14:30)
[2017-10-03 15:10] LABS: FREE T4 (FREE THYROXINE) 0.95 ng/dL (0.76-1.46); THYROID STIMULATING HORMONE 1.24 mIU/L (0.358-3.740)
[2017-10-03] MEDS ORDERED: MECLIZINE CHEWABLE 25 MG TAB ONE (15:46)
[2017-10-03] MEDS ORDERED: MECLIZINE CHEWABLE 25 MG TAB PO PRN (17:00)
[2017-10-03] MEDS: METOPROLOL TARTRATE 25 MG TABLET PO SCH (17:19)
[2017-10-03] MEDS ORDERED: AMLODIPINE 5 MG TABLET PO SCH (21:00)
[2017-10-03] MEDS ORDERED: ALBUTEROL SULFATE 2.5 MG/3 ML ONE (21:04)
[2017-10-03] MEDS: ALBUTEROL SULFATE 2.5MG/0.5ML NPPB PRN (21:08)
[2017-10-03] MEDS: FUROSEMIDE 80 MG TABLET PO SCH (21:10)
[2017-10-03] MEDS: CINACALCET 30 MG TABLET PO SCH (21:11)
[2017-10-03 22:08] LABS: OCCULT BLOOD NEGATIVE (NEGATIVE)
[2017-10-04] MEDS: TEMAZEPAM 15 MG CAPSULE PO PRN ×2 (00:25→01:38)
[2017-10-04 00:32] VITALS: BP 157/91
[2017-10-04] MEDS ORDERED: ALBUTEROL SULFATE 2.5 MG/3 ML ONE ×2 (03:34→03:46)
[2017-10-04] MEDS: ALBUTEROL SULFATE 2.5MG/0.5ML NPPB PRN ×2 (03:37→03:48)
[2017-10-04 04:41] LABS: ABSOLUTE RETICS # 0.051 x10^6/uL (0.5-2.5); BASOPHILS % (AUTO) 1 % (0-1); EOSINOPHILS # (AUTO) 0.27 x10^3/uL (0-0.4); EOSINOPHILS % (AUTO) 4 % (1-7); LYMPHOCYTES # (AUTO) 1.27 x10^3/uL (1-3.4); LYMPHOCYTES % (AUTO) 17 % (22-44); MD NO; MEAN CORPUSCULAR HEMOGLOBIN 33.4 pg (27.0-34.8); MEAN CORPUSCULAR HGB CONC 34.4 g/dL (32.4-35.8); MEAN CORPUSCULAR VOLUME 97.2 fL (80-100); MEAN PLATELET VOLUME 7.5 fL (7.4-10.4); MONOCYTES # (AUTO) 0.44 x10^3/uL (0.2-0.8); MONOCYTES % (AUTO) 6 % (2-9); NEUTROPHILS # (AUTO) 5.61 x10^3/uL (1.8-6.8); NEUTROPHILS % (AUTO) 73 % (42-75); PLATELET COUNT 222 x10^3/uL (130-400); RED BLOOD COUNT 2.58 x10^6/uL (3.82-5.3); RED CELL DISTRIBUTION WIDTH 15.6 % (9.6-15.2); RETICULOCYTE COUNT % 1.99 % (0.5-1.5)
[2017-10-04 04:45] LABS: INTERNATIONAL NORMALIZED RATIO 2.03 (0.93-1.1); PROTHROMBIN TIME 20.8 Seconds (9.6-11.5)
[2017-10-04 04:48] LABS: CALCIUM 9.3 mg/dL (8.5-10.1); CHLORIDE 97 mmol/L (98-107)
[2017-10-04 04:54] LABS: % IRON SATURATION 29 % (20-55); ALANINE AMINOTRANSFERASE 20 U/L (12-78); ALBUMIN 3.5 g/dL (3.4-5.0); ALKALINE PHOSPHATASE 77 U/L (45-117); CREATININE 6.21 mg/dL (0.55-1.02); IRON LEVEL 81 mcg/dL (50-170); TOTAL IRON BINDING CAPACITY 278 mcg/dL (250-450); TOTAL PROTEIN 7.4 g/dL (6.4-8.2)
[2017-10-04 04:58] LABS: ANION GAP 9 mmol/L (5-15)
[2017-10-04] MEDS: METOPROLOL TARTRATE 25 MG TABLET PO SCH (05:23)
[2017-10-04 05:24] VITALS: BP 160/91
[2017-10-04 08:30] VITALS: BP 150/108
[2017-10-04] MEDS ORDERED: LOSARTAN 25MG TABLET PO SCH ×2 (09:00→21:00)
[2017-10-04] MEDS: CINACALCET 30 MG TABLET PO SCH ×2 (09:26→21:11)
[2017-10-04] MEDS: WARFARIN 5 MG TABLET PO-COUM SCH (09:26)
[2017-10-04] MEDS: SEVELAMER HCL 800MG TABLET PO SCH ×2 (12:59→17:32)
[2017-10-04 15:20] VITALS: BP 152/83
[2017-10-04] MEDS: CARVEDILOL 12.5 MG TABLET PO SCH (17:32)
[2017-10-04 20:50] VITALS: BP 151/91
[2017-10-04] MEDS: FUROSEMIDE 80 MG TABLET PO SCH (21:11)
[2017-10-05 02:42] VITALS: BP 174/106
[2017-10-05 05:35] LABS: BASOPHILS % (AUTO) 1 % (0-1); EOSINOPHILS # (AUTO) 0.42 x10^3/uL (0-0.4); EOSINOPHILS % (AUTO) 5 % (1-7); LYMPHOCYTES # (AUTO) 1.68 x10^3/uL (1-3.4); LYMPHOCYTES % (AUTO) 19 % (22-44); MD NO; MEAN CORPUSCULAR HEMOGLOBIN 32.9 pg (27.0-34.8); MEAN CORPUSCULAR HGB CONC 34.1 g/dL (32.4-35.8); MEAN CORPUSCULAR VOLUME 96.7 fL (80-100); MEAN PLATELET VOLUME 8.3 fL (7.4-10.4); MONOCYTES # (AUTO) 0.96 x10^3/uL (0.2-0.8); MONOCYTES % (AUTO) 11 % (2-9); NEUTROPHILS # (AUTO) 5.76 x10^3/uL (1.8-6.8); NEUTROPHILS % (AUTO) 65 % (42-75); PLATELET COUNT 259 x10^3/uL (130-400); RED CELL DISTRIBUTION WIDTH 14.9 % (9.6-15.2)
[2017-10-05 05:49] LABS: ALBUMIN 3.5 g/dL (3.4-5.0); ANION GAP 10 mmol/L (5-15); CALCIUM 9.2 mg/dL (8.5-10.1); CHLORIDE 102 mmol/L (98-107)
[2017-10-05 05:54] LABS: ALANINE AMINOTRANSFERASE 19 U/L (12-78); ALKALINE PHOSPHATASE 80 U/L (45-117); BILIRUBIN,TOTAL 0.9 mg/dL (0.2-1.0); CREATININE 6.77 mg/dL (0.55-1.02); TOTAL PROTEIN 7.6 g/dL (6.4-8.2)
[2017-10-05] MEDS: CARVEDILOL 12.5 MG TABLET PO SCH (06:21)
[2017-10-05 06:55] VITALS: BP 149/84
[2017-10-05] MEDS: SEVELAMER HCL 800MG TABLET PO SCH ×3 (08:45→17:45)
[2017-10-05] MEDS: CINACALCET 30 MG TABLET PO SCH (08:47)
[2017-10-05] MEDS: WARFARIN 5 MG TABLET PO-COUM SCH (08:49)
[2017-10-05] MEDS ORDERED: CARV25TA12 PO (11:36)
[2017-10-05 12:20] VITALS: BP 148/80
[2017-10-05] MEDS ORDERED: CARVEDILOL 25 MG TABLET PO SCH (18:00)
== END 2017-10-05 19:08 | disposition home or self-care (01) | DRG 682 ==
LOC: ED 12:21 → EDIP 12:43 → OBSVTOIN 14:28 → 4WST 16:44
PROVIDERS: ADMIT Internal Medicine; ATTEND Internal Medicine
PROC: 5A1D70Z Performance of Urinary Filtration, Intermittent, Less than 6 Hours Per Day (ICD-10-PCS; 2017-10-03)
PROC: 30233N1 Transfusion of Nonautologous Red Blood Cells into Peripheral Vein, Percutaneous Approach (ICD-10-PCS; 2017-10-03)
PROC: 5A1D70Z Performance of Urinary Filtration, Intermittent, Less than 6 Hours Per Day (ICD-10-PCS; 2017-10-04)
PROC: 5A1D70Z Performance of Urinary Filtration, Intermittent, Less than 6 Hours Per Day (ICD-10-PCS; principal; 2017-10-05)
DX: I12.0 Hypertensive chronic kidney disease with stage 5 chronic kidney disease or end stage renal disease (principal); N18.6 End stage renal disease; D68.69 Other thrombophilia; D62 Acute posthemorrhagic anemia; E44.1 Mild protein-calorie malnutrition; E87.5 Hyperkalemia; N25.81 Secondary hyperparathyroidism of renal origin; E87.70 Fluid overload, unspecified; N25.0 Renal osteodystrophy; D63.1 Anemia in chronic kidney disease; G43.909 Migraine, unspecified, not intractable, without status migrainosus; R40.0 Somnolence; R60.0 Localized edema; Z79.01 Long term (current) use of anticoagulants; Z80.1 Family history of malignant neoplasm of trachea, bronchus and lung; Z82.49 Family history of ischemic heart disease and other diseases of the circulatory system; Z86.711 Personal history of pulmonary embolism; Z86.718 Personal history of other venous thrombosis and embolism; Z87.891 Personal history of nicotine dependence; Z90.710 Acquired absence of both cervix and uterus; Z90.721 Acquired absence of ovaries, unilateral; Z99.2 Dependence on renal dialysis; Z68.32 Body mass index [BMI] 32.0-32.9, adult
CPT/HCPCS: 36415; 36430; 80053; 82272; 83540; 83550; 83615; 83735; 84100; 84439; 84443; 85025; 85045; 85610; 85730; 86850; 86900; 86923; 93005; 94640; 99285; G0378; J7611; J0360; P9016

== ENCOUNTER → 2020-05-09 | Outpatient (CLI) | payer MEDICARE, MEDICAID ==
[~2020-05-09] MED LIST changes: +AMLO-150 PO; -AMLO10TA2 PO; +AMLO10TA8 PO; -AMLO5TAB2 PO; +ATOM100C PO; +CALC0.25 PO; +CARV-39 PO; -CLON-365 PO; +CLON1TAB11 PO; +GABA300C PO; +HYDR50CA2 PO; +LORA2TAB99 PO; +LOSA25TA25 PO; -LOSA25TA5 PO; +MIRT-34 PO; +MONT10TA11 PO; +MONT10TA6 PO; -MONT10TA9 PO; +PANT20TA4 PO; +SEVE800T7 PO; +WARF10TA43 PO; -WARF10TA6 PO; -WARF5TAB PO; +WARF5TAB2 PO
[2020-05-09 09:58] LABS: BASOPHILS % (AUTO) 3 % (0-1); EOSINOPHILS % (AUTO) 3 % (1-7); LYMPHOCYTES % (AUTO) 23 % (22-44); MEAN CORPUSCULAR HEMOGLOBIN 34.2 pg (27.0-34.8); MEAN CORPUSCULAR HGB CONC 33.4 g/dL (32.4-35.8); MEAN PLATELET VOLUME 8.6 fL (7.4-10.4); MONOCYTES % (AUTO) 7 % (2-9); NEUTROPHILS % (AUTO) 64 % (42-75); PLATELET COUNT 176 x10^3/uL (130-400); RED BLOOD COUNT 3.26 x10^6/uL (3.82-5.3); RED CELL DISTRIBUTION WIDTH 14.4 % (9.6-15.2)
[2020-05-09 10:01] LABS: INTERNATIONAL NORMALIZED RATIO 1.4 (0.93-1.1); PROTHROMBIN TIME 14.5 Seconds (9.6-11.5)
[2020-05-09 10:05] LABS: ANION GAP 9 mmol/L (5-15); CALCIUM 9.3 mg/dL (8.5-10.1); CHLORIDE 99 mmol/L (98-107)
[2020-05-09 10:10] LABS: ALANINE AMINOTRANSFERASE 15 U/L (12-78); ALBUMIN 3.4 g/dL (3.4-5.0); ALKALINE PHOSPHATASE 73 U/L (45-117); BILIRUBIN,TOTAL 0.4 mg/dL (0.2-1.0); CREATININE 7.41 mg/dL (0.55-1.02); MD SCAN; TOTAL PROTEIN 7.2 g/dL (6.4-8.2)
== END | disposition home or self-care (01) ==
LOC: STAR 08:25
PROVIDERS: ATTEND Internal Medicine Gastroenterology
DX: Z01.812 Encounter for preprocedural laboratory examination (principal); Z20.828 Contact with and (suspected) exposure to other viral communicable diseases; R19.7 Diarrhea, unspecified; R10.9 Unspecified abdominal pain; R11.0 Nausea; R12 Heartburn
CPT/HCPCS: 36415; 80053; 85025; 85610; 85730; 87635; 93005

== ENCOUNTER 2020-06-11 07:59 | Day surgery (SDC) | payer MEDICARE, MEDICAID ==
[~2020-06-11] VITALS: Ht 165.1 cm; Wt 114.2 kg
[~2020-06-11 07:59] MED LIST changes: +AMLO-211 PO; -AMLO10TA8 PO; -MONT10TA11 PO; +MONT10TA96 PO
[2020-06-11 08:44] VITALS: BP 141/85
[2020-06-11] MEDS ORDERED: CHLORHEXIDINE 15 ML UDC MM STA (08:46)
[2020-06-11] MEDS ORDERED: LACTATED RINGERS 1,000 ML IV SCH (08:46)
[2020-06-11] MEDS ORDERED: CHLORHEXIDINE 15 ML UDC ONE (08:48)
[2020-06-11] MEDS ORDERED: PROPOFOL 10 MG/ML, 50ML ONE (09:50)
[2020-06-11] MEDS ORDERED: FENTANYL PF 100 MCG/2ML IV PRN (10:30)
[2020-06-11] MEDS ORDERED: DIAZEPAM 5 MG/ML, 2ML IVPush PRN (10:30)
[2020-06-11] MEDS ORDERED: DIPHENHYDRAMINE 50 MG/ML, 1ML IVPush PRN (10:30)
[2020-06-11] MEDS ORDERED: ONDANSETRON 2MG/ML, 2ML IVPush PRN (10:30)
[2020-06-11] MEDS ORDERED: EPHEDRINE 50 MG/ML, 1ML IVPush PRN (10:30)
[2020-06-11] MEDS ORDERED: OXYcodone 5 MG/5 ML ORAL.SOL UDC PO PRN (10:30)
[2020-06-11] MEDS ORDERED: PROMETHAZINE 25 MG/ML, 1ML IVPush PRN (10:30)
[2020-06-11] MEDS ORDERED: EPHEDRINE 50 MG/ML, 1ML IM PRN (10:30)
== END 2020-06-11 12:15 | disposition home or self-care (01) ==
LOC: OUT 07:59
PROVIDERS: ATTEND Internal Medicine
DX: K21.00 Gastro-esophageal reflux disease with esophagitis, without bleeding (principal); K29.60 Other gastritis without bleeding; K44.9 Diaphragmatic hernia without obstruction or gangrene; R19.4 Change in bowel habit; R19.7 Diarrhea, unspecified; I12.0 Hypertensive chronic kidney disease with stage 5 chronic kidney disease or end stage renal disease; N18.6 End stage renal disease; E66.01 Morbid (severe) obesity due to excess calories; F41.9 Anxiety disorder, unspecified; F98.8 Other specified behavioral and emotional disorders with onset usually occurring in childhood and adolescence; J45.909 Unspecified asthma, uncomplicated; Z79.01 Long term (current) use of anticoagulants; Z79.899 Other long term (current) drug therapy; Z88.8 Allergy status to other drugs, medicaments and biological substances
CPT/HCPCS: 43239; 45380; 88305; J2704; J7120